=== PATIENT | female | born 1955 | race American Indian/Alaskan Native ===

== ENCOUNTER 2016-10-28 17:07 | Emergency (ER) | payer MEDICAID ==
[2016-10-28 17:20] VITALS: BP 160/88; PULSE 90; RESP 16; TEMP 98.3; O2SAT 96
--- NOTE | 2016-10-28 17:59 | ED PDOC ---
Lower Extremity Pain/Injury Time Seen by Provider: 10/28/16 17:21 Chief Complaint (Nursing): Lower Extremity Problem/Injury Chief Complaint (Provider): Left calf pain History Per: Patient History/Exam Limitations: no limitations Onset/Duration Of Symptoms: Days (1) Current Symptoms Are (Timing): Still Present Additional Complaint(s): Aston Mendoza is a 61 y/o female presenting to the ER on 10/28/2016 with complaints of left calf pain onset yesterday. Patient states when she woke up this morning, she noticed her calf pain worsened and noticed there was some swelling to the area. She was evaluated by Dr. Mendoza, her insecticide mixer, who referred her to the ED for an Ultrasound to rule out DVT. She ntoes the pain feels like a "pulling" sensation. She denies any history of recent travel, smoking, similar symptoms in the past, blood clotting disorders, chest pain or shortness of breath. Past Medical History Reviewed: Historical Data, Nursing Documentation, Vital Signs Vital Signs: Last Vital Signs Temp 98.3 F 10/28/16 17:16 Pulse 90 10/28/16 17:16 Resp 16 10/28/16 17:16 BP 160/88 H 10/28/16 17:16 Pulse Ox 96 10/28/16 17:16 - Medical History PMH: Asthma (LAST ATTACK :2013), Diabetes, HTN, Hypercholesterolemia Denies: Chronic Kidney Disease - Surgical History Surgical History: No Surg Hx - Family History Family History: States: Unknown Family Hx - Social History Current smoker - smoking cessation education provided: No Alcohol: None Drugs: Denies - Home Medications Home Medications: Ambulatory Orders Medication Instructions Recorded Insulin Glargine,Hum.rec.anlog 34 unit SC BID 02/10/15 [Lantus] Aspirin [Ecotrin] 81 mg PO DAILY 05/12/15 Atorvastatin [Lipitor] 80 mg PO DAILY 05/12/15 Losartan/Hydrochlorothiazide 1 tab PO DAILY 05/12/15 [Hyzaar 50-12.5 Tablet] MetFORMIN [glucoPHAGE] 1,000 mg PO BID 05/12/15 Pantoprazole Sodium [Protonix] 40 mg PO DAILY PRN 05/12/15 amLODIPine [Norvasc] 10 mg PO DAILY 05/12/15 Albuterol 0.083% [Albuterol 0.083% 2.5 mg INH RQ4 PRN #0 neb 05/15/15 Inhal Geeta (2.5 mg/3 ml) UD] Moxifloxacin [Avelox] 400 mg PO DAILY #0 tab 05/15/15 Promethazine HCl/Codeine 5 ml PO Q6 PRN #240 syrup 05/15/15 [Prometh-Codein 6.25-10 mg/5 ml] predniSONE [Prednisone] 10 mg PO DAILY #5 tab 05/15/15 - Allergies Allergies/Adverse Reactions: Allergies Allergy/AdvReac Type Severity Reaction Status Date / Time No Known Allergies Allergy Verified 03/08/14 17:18 Review of Systems ROS Statement: Except As Marked, All Systems Reviewed And Found Negative Cardiovascular: Negative for: Chest Pain Respiratory: Negative for: Shortness of Breath Musculoskeletal: Positive for: Leg Pain ((+) calf pain ) Physical Exam - Reviewed Nursing Documentation Reviewed: Yes Vital Signs Reviewed: Yes - Physical Exam Appears: Positive for: Non-toxic, No Acute Distress Head Exam: Positive for: ATRAUMATIC, NORMOCEPHALIC Skin: Positive for: Normal Color. Negative for: Rash Eye Exam: Positive for: Normal appearance Neck: Positive for: Normal Cardiovascular/Chest: Positive for: Regular Rate, Rhythm. Negative for: Murmur Respiratory: Positive for: Normal Breath Sounds. Negative for: Respiratory Distress Extremity: Positive for: Normal ROM, Calf Tenderness (mild), Swelling (mild edema to proximal lateral aspect of left calf ) Neurologic/Psych: Positive for: Alert, Oriented. Negative for: Motor/Sensory Deficits - ECG O2 Sat by Pulse Oximetry: 96 - CT Scan/US L LE Duplex US Other Rad Studies (CT/US): Read By Radiologist Other Rad Interpretation: No DVT noted, Barriga's cyst noted in left popliteal fossa Medical Decision Making Medical Decision Makin:21 Initial Impression- 61 y/o female with left calf pain Initial Plan- * US Duplex LE US results reviewed and discussed with patient. She was advised to f/u with PMD, or Dr. Gimenez, should pain worsen. She was advised to return to the ED for worsening or change in symptoms. Documented by Anam Diaz, acting as a scribe for Gabriela Coffey PA-C All medical record entries made by the Scribe were at my direction and personally dictated by me. I have reviewed the chart and agree that the record accurately reflects my personal performance of the history, physical exam, medical decision making, and the department course for this patient. I have also personally directed, reviewed, and agree with the discharge instructions and disposition. Disposition - Clinical Impression Clinical Impression: Pain of left calf, Bakers cyst - Patient ED Disposition Is Patient to be Admitted: No Counseled Patient/Family Regarding: Studies Performed, Diagnosis, Need For Followup - Disposition Referrals: Pablo Harvey III, MD [Staff Provider] - Disposition: Routine/Home Disposition Time: 19:54 Condition: STABLE Additional Instructions: Apply compression, keep leg elevated, and take antiinflammatories. Avoid strenuous activity. F/u as directed, and return with any worsening or change in symptoms. Instructions: Barriga's Cyst (ED), Leg Pain (ED) Forms: [facility] (Welsh)
--- NOTE | 2016-10-28 19:30 | US ---
EXAM: US Duplex Left Lower Extremity Veins CLINICAL HISTORY: 61 years old, female; Pain; Leg, lower; Left; Additional info: Left le pain/swelling TECHNIQUE: Real-time ultrasound scan of the veins of the left lower extremity with color Doppler flow, spectral waveform analysis and compression. EXAM DATE/TIME: 10/28/2016 5:56 PM COMPARISON: No relevant prior studies available. FINDINGS: Normal-appearing compressibility, flow and augmentation response are seen in the left common femoral, femoral and popliteal veins. Flow is seen in the posterior tibial veins, in the left calf. Mildly complex cystic mass in the left popliteal soft tissues. This has a lobulated shape, and measures 4.2 1.4 x 2.2 cm maximally. It contains several internal soft tissue septations. It has well-defined margins. No evidence of significant associated flow/vascularity on color imaging. This most likely represents a mildly complex Barriga's cyst. IMPRESSION: No evidence of deep venous thrombosis in the left leg. 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 See above for remaining findings.
== END 2016-10-28 20:00 | disposition home or self-care (01) ==
LOC: H.ER 17:07
DX: M79.604 Pain in right leg (principal); E11.9 Type 2 diabetes mellitus without complications; E78.00 Pure hypercholesterolemia, unspecified; I10 Essential (primary) hypertension; J45.909 Unspecified asthma, uncomplicated; Z79.4 Long term (current) use of insulin; Z79.82 Long term (current) use of aspirin

== ENCOUNTER 2017-09-02 19:51 | Observation (INO) | payer MEDICAID ==
--- NOTE | 2017-09-02 20:30 | ED PDOC ---
HPI: Chest Pain Time Seen by Provider: 09/02/17 20:02 Chief Complaint (Nursing): Chest Pain Chief Complaint (Provider): Chest Pain History Per: Patient History/Exam Limitations: no limitations Onset/Duration Of Symptoms: Hrs Current Symptoms Are (Timing): Still Present Alleviating Factors: None Additional Complaint(s): 62 year old female with a past medical history of HTN and diabetes presents to the ED complaining of constant anterior chest pain, onset last night. Patient reports only of taking baby aspirin which she takes everyday. Patient also reports associated symptoms of shortness of breath and passing out sometimes but has never passed out. Patient states chest pain occasionally radiate to left arm. Additionally, patient reports of a high blood pressure today, leading her to take her blood pressure medication twice today. Denies back pain, fever, cough, and leg swelling. PMD: Yannick Hathaway Past Medical History Reviewed: Historical Data, Nursing Documentation, Vital Signs Vital Signs: Last Vital Signs Temp 98.1 F 09/03/17 15:25 Pulse 83 09/03/17 15:25 Resp 20 09/03/17 15:25 BP 143/89 09/03/17 15:25 Pulse Ox 99 09/03/17 15:25 - Medical History PMH: Asthma (LAST ATTACK :2013), Diabetes, HTN, Hypercholesterolemia Denies: Chronic Kidney Disease - Surgical History Surgical History: Hernia Repair - Family History Family History: States: Unknown Family Hx - Home Medications Home Medications: Ambulatory Orders Medication Instructions Recorded Insulin Glargine,Hum.rec.anlog 34 unit SC BID 02/10/15 [Lantus] Aspirin [Ecotrin] 81 mg PO DAILY 05/12/15 Atorvastatin [Lipitor] 80 mg PO DAILY 05/12/15 Losartan/Hydrochlorothiazide 1 tab PO DAILY 05/12/15 [Hyzaar 50-12.5 Tablet] MetFORMIN [glucoPHAGE] 1,000 mg PO BID 05/12/15 Pantoprazole Sodium [Protonix] 40 mg PO DAILY PRN 05/12/15 amLODIPine [Norvasc] 10 mg PO DAILY 05/12/15 Albuterol 0.083% [Albuterol 0.083% 2.5 mg INH RQ4 PRN #0 neb 05/15/15 Inhal Geeta (2.5 mg/3 ml) UD] Moxifloxacin [Avelox] 400 mg PO DAILY #0 tab 05/15/15 Promethazine HCl/Codeine 5 ml PO Q6 PRN #240 syrup 05/15/15 [Prometh-Codein 6.25-10 mg/5 ml] predniSONE [predniSONE Tab] 10 mg PO DAILY #5 tab 05/15/15 Gabapentin [Neurontin] 300 mg PO TID 09/03/17 Insulin Detemir [Levemir] 42 units SC BID #0 vial 09/03/17 Irbesartan 150 mg PO DAILY 09/03/17 Omeprazole 40 mg PO DAILY 09/03/17 hydroCHLOROthiazide [Hydrodiuril] 25 mg PO DAILY 09/03/17 - Allergies Allergies/Adverse Reactions: Allergies Allergy/AdvReac Type Severity Reaction Status Date / Time No Known Allergies Allergy Verified 03/08/14 17:18 MORRO Risk Score for UA/NSTEMI - MORRO Risk Score Age > 64: NO 3 or more CAD Risk Factors: YES Known CAD (Stenosis greater than 50%): NO Aspirin use in past 7 days: YES Severe Angina: NO EKG ST changes greater than 0.5mm: NO MORRO Score: 2 Risk %: 8% Wells Criteria for PE - Wells Criteria for Pulmonary Embolism Clinical Signs and Symptoms of DVT: No P.E is #1 Diagnosis, or Equally Likely: No Heart Rate >100: No Immobilization at least 3 days;Surgery previous 4 weeks: No Previous, objectively diagnosed PE or DVT: No Hemoptysis: No Malignancy w/treatment within 6 months, or palliative: No Total Score: 0 Review of Systems ROS Statement: Except As Marked, All Systems Reviewed And Found Negative Constitutional: Negative for: Fever Cardiovascular: Positive for: Chest Pain (anterior constant/continuous ) Respiratory: Positive for: Shortness of Breath (occasional). Negative for: Cough Musculoskeletal: Negative for: Back Pain, Leg Pain Physical Exam - Reviewed Nursing Documentation Reviewed: Yes Vital Signs Reviewed: Yes - Physical Exam Appears: Positive for: Non-toxic, No Acute Distress (comfortable) Head Exam: Positive for: ATRAUMATIC, NORMOCEPHALIC Skin: Positive for: Normal Color, Warm, Dry Eye Exam: Positive for: Normal appearance, EOMI, PERRL ENT: Positive for: Normal ENT Inspection Neck: Positive for: Normal, Painless ROM, Supple Cardiovascular/Chest: Positive for: Regular Rate, Rhythm. Negative for: Chest Non Tender (chest wall tenderness to the anterior middle of chest), Murmur Respiratory: Positive for: Normal Breath Sounds. Negative for: Respiratory Distress Gastrointestinal/Abdominal: Positive for: Normal Exam, Soft. Negative for: Tenderness Back: Positive for: Normal Inspection. Negative for: L CVA Tenderness, R CVA Tenderness, Vertebral Tenderness Extremity: Positive for: Normal ROM. Negative for: Pedal Edema, Deformity Neurologic/Psych: Positive for: Alert, Oriented (x3). Negative for: Motor/ Sensory Deficits - Laboratory Results Result Diagrams: 09/03/17 07:15 09/03/17 06:19 - ECG ECG Rhythm: Positive for: Normal QRS, Sinus Rhythm Rate: 95 O2 Sat by Pulse Oximetry: 96 (RA) Pulse Ox Interpretation: Normal Medical Decision Making Medical Decision Making: Time: 2022 Impression: Chest pain Differentials include but not limited to ACS, Pulmonary Embolism, Musculoskeletal pain, CHF Plan: -- IV Insertion -- Hand Clipper -- Aspirin 325 mg PO -- CXR One View -- D Dimer [COAG] -- CBC with differentials -- Troponin I -- BMP -- B-Type Natriuretic -- EKG Scribe Attestation: Documented by Ivana Franco, acting as a scribe for Dr. Eloise Jones MD. Provider Scribe Attestation: All medical record entries made by the Scribe were at my direction and personally dictated by me. I have reviewed the chart and agree that the record accurately reflects my personal performance of the history, physical exam, medical decision making, and the department course for this patient. I have also personally directed, reviewed, and agree with the discharge instructions and disposition. Disposition - Clinical Impression Clinical Impression: Chest pain - Patient ED Disposition Is Patient to be Admitted: Yes Discussed With : Clint Coronel Doctor Will See Patient In The: Hospital Counseled Patient/Family Regarding: Studies Performed, Diagnosis - Disposition Disposition Time: 23:00 Condition: FAIR - Pt Status Changed To: Hospital Disposition Of: Observation - POA Present On Arrival: None Core Measure Indicators: Chest Pain
[2017-09-02 21:23] LABS: BASO # 0.1 K/uL (0.0-0.2); BASO % 0.7 % (0.0-2.0); EOS # 0.1 K/uL (0.0-0.7); HEMOGLOBIN 11.2 g/dL (12.0-16.0); LYMPH # 2.5 K/uL (1.0-4.3); LYMPH % 31.1 % (20.0-40.0); MEAN CELL VOLUME 81.4 fl (81.0-99.0); MEAN CORPUSCULAR HEMOGLOBIN 26.2 pg (27.0-31.0); MEAN CORPUSCULAR HGB CONC 32.2 g/dL (33.0-37.0); MEAN PLATELET VOLUME 9.9 fl (7.2-11.7); MONO # 0.6 K/uL (0.0-0.8); MONO % 7.8 % (0.0-10.0); NEUT # 4.7 K/uL (1.8-7.0); NEUT % 59.4 % (50.0-75.0); NRBC % 0.1 % (0.0-0.0); RBC 4.25 Mil/uL (3.80-5.20); RED CELL DISTRIBUTION WIDTH 15.3 % (11.5-14.5)
[2017-09-02 21:32] LABS: BLOOD UREA NITROGEN 17 mg/dl (7-17); CALCIUM 8.9 mg/dL (8.4-10.2); GFR AFRICAN-AMERICAN > 60; GFR NON-AFRICAN AMERICAN > 60
[2017-09-02 21:50] LABS: B-TYPE NATRIURETIC PEPTIDE 37.8 pg/ml (0-900)
[2017-09-02] MEDS ORDERED: Pantoprazole 40 mg EC Tab PO PRN (23:10)
[2017-09-02] MEDS ORDERED: Albuterol 0.083% Inhal Sol (2.5 mg/3 mL) UD INH PRN (23:10)
[2017-09-03] MEDS ORDERED: Insulin Regular 100 units/ml ONE (02:56)
[2017-09-03] MEDS: Insulin Lispro (humaLOG) 100 Units/ml Inj SC SCH ×2 (03:37→12:06)
[2017-09-03 06:45] VITALS: RESP 20
[2017-09-03 07:43] LABS: ALBUMIN 3.6 g/dL (3.5-5.0); ALT/SGPT 22 U/L (9-52); AST/SGOT 24 U/L (14-36); BLOOD UREA NITROGEN 17 mg/dl (7-17); GFR AFRICAN-AMERICAN > 60; GFR NON-AFRICAN AMERICAN > 60
--- NOTE | 2017-09-03 07:53 | CP.PCM.HP ---
History of Present Illness - History of Present Illness History of Present Illness: Pt admitted for chest pain, elevated blood pressure/uncontrolled hypertension and diabetes uncontrolled. no c/o chest pain offered at this time no fever chills nausea vomiting or diarrhea. patient has been having chest pain on and off and has seen [facility] for the same complaint. All bloodwork from ER and imaging noted. cardio consult and echo are pending. All glucose results noted overnight patient has seen Endochronologist recently trop negative x 2 Present on Admission - Present on Admission Any Indicators Present on Admission: Yes History of Uncontrolled Diabetes: Yes Review of Systems - Cardiovascular Cardiovascular: As Per HPI, Chest Pain Past Patient History - Infectious Disease Hx of Infectious Diseases: None - Past Medical History & Family History Past Medical History?: Yes - Past Social History Smoking Status: Former Smoker - CARDIAC Hx Hypercholesterolemia: Yes Hx Hypertension: Yes - PULMONARY Hx Asthma: Yes (LAST ATTACK :2013) - NEUROLOGICAL Hx Neurological Disorder: No - HEENT Hx HEENT Problems: No - RENAL Hx Chronic Kidney Disease: No - ENDOCRINE/METABOLIC Hx Endocrine Disorders: Yes Hx Diabetes Mellitus Type 2: Yes - HEMATOLOGICAL/ONCOLOGICAL Hx Blood Disorders: No Hx AIDS: No - INTEGUMENTARY Hx Dermatological Problems: No - MUSCULOSKELETAL/RHEUMATOLOGICAL Hx Musculoskeletal Disorders: No Hx Falls: No - GASTROINTESTINAL Hx Gastrointestinal Disorders: No - GENITOURINARY/GYNECOLOGICAL Hx Genitourinary Disorders: No - PSYCHIATRIC Hx Psychophysiologic Disorder: No Hx Emotional Abuse: No Hx Physical Abuse: No Hx Substance Use: No - SURGICAL HISTORY Hx Surgeries: Yes Hx Herniorrhaphy: Yes Other/Comment: ABDOMINAL HERNIA REPAIR. eye sx - ANESTHESIA Hx Anesthesia: Yes Hx Anesthesia Reactions: No Meds Allergies/Adverse Reactions: Allergies Allergy/AdvReac Type Severity Reaction Status Date / Time No Known Allergies Allergy Verified 03/08/14 17:18 Physical Exam - Constitutional Appears: Well, Non-toxic, No Acute Distress - Head Exam Head Exam: ATRAUMATIC, NORMAL INSPECTION, NORMOCEPHALIC - Eye Exam Eye Exam: EOMI, Normal appearance, PERRL Pupil Exam: NORMAL ACCOMODATION, PERRL - ENT Exam ENT Exam: Mucous Membranes Moist, Normal Exam - Neck Exam Neck exam: Positive for: Normal Inspection - Respiratory Exam Respiratory Exam: Clear to Auscultation Bilateral, NORMAL BREATHING PATTERN - Cardiovascular Exam Cardiovascular Exam: REGULAR RHYTHM, RRR, +S1, +S2 - GI/Abdominal Exam GI & Abdominal Exam: Normal Bowel Sounds, Soft. absent: Tenderness - Exam External exam: NORMAL EXTERNAL EXAM Bimanual exam: NORMAL BIMANUAL EXAM - Extremities Exam Extremities exam: Positive for: full ROM, normal capillary refill, normal inspection, pedal pulses present - Back Exam Back exam: NORMAL INSPECTION - Neurological Exam Neurological exam: Alert, CN II-XII Intact, Normal Gait, Oriented x3, Reflexes Normal - Psychiatric Exam Psychiatric exam: Normal Affect, Normal Mood - Skin Skin Exam: Dry, Intact, Normal Color, Warm Results - Vital Signs Recent Vital Signs: Last Vital Signs Temp 98.7 F 09/03/17 06:42 Pulse 22 L 09/03/17 06:42 Resp 20 09/03/17 06:42 BP 139/95 H 09/03/17 06:42 Pulse Ox 97 09/03/17 06:42 - Labs Result Diagrams: 09/03/17 07:15 09/03/17 06:19 Labs: Laboratory Results - last 24 hr 09/02/17 09/02/17 09/02/17 21:17 21:17 23:09 WBC 8.0 RBC 4.25 Hgb 11.2 L Hct 34.6 MCV 81.4 MCH 26.2 L MCHC 32.2 L RDW 15.3 H Plt Count 192 MPV 9.9 Neut % (Auto) 59.4 Lymph % (Auto) 31.1 [place] % (Auto) 7.8 Eos % (Auto) 1.0 Baso % (Auto) 0.7 Neut # (Auto) 4.7 Lymph # (Auto) 2.5 [place] # (Auto) 0.6 Eos # (Auto) 0.1 Baso # (Auto) 0.1 D-Dimer, Quantitative 92 Sodium 141 Potassium 3.5 L Chloride 101 Carbon Dioxide 31 H Anion Gap 13 BUN 17 Creatinine 0.7 Est GFR ( Amer) > 60 Est GFR (Non-Af Amer) > 60 POC Glucose (mg/dL) Random Glucose 259 H Calcium 8.9 Total Bilirubin AST ALT Alkaline Phosphatase Troponin I < 0.0120 NT-Pro-B Natriuret Pep 37.8 Total Protein Albumin Globulin Albumin/Globulin Ratio 09/03/17 09/03/17 02:23 06:19 WBC RBC Hgb Hct MCV MCH MCHC RDW Plt Count MPV Neut % (Auto) Lymph % (Auto) [place] % (Auto) Eos % (Auto) Baso % (Auto) Neut # (Auto) Lymph # (Auto) [place] # (Auto) Eos # (Auto) Baso # (Auto) D-Dimer, Quantitative Sodium 144 Potassium 3.4 L Chloride 104 Carbon Dioxide 32 H Anion Gap 11 BUN 17 Creatinine 0.7 Est GFR ( Amer) > 60 Est GFR (Non-Af Amer) > 60 POC Glucose (mg/dL) 182 H Random Glucose 138 H Calcium 9.0 Total Bilirubin 0.3 AST 24 ALT 22 Alkaline Phosphatase 66 Troponin I NT-Pro-B Natriuret Pep Total Protein 7.0 Albumin 3.6 Globulin 3.4 Albumin/Globulin Ratio 1.0 Assessment & Plan (1) DVT prophylaxis Assessment and Plan: scd and ae hose ambulation lovenox if admitted over 24h Status: Acute (2) Diabetes type 2, uncontrolled Assessment and Plan: humalog ss, fsbg, diet control home meds dose of levemir incr Status: Acute (3) Acute chest pain Assessment and Plan: trop x 2 negative, 3rd pending cardio asa, ntg prn echo Status: Acute (4) Hypertension Assessment and Plan: cont home meds Status: Acute Decision To Admit - Pt Status Changed To: Hospital Disposition Of: Observation - . Bed Request Type: Telemetry Admitting Physician: Maritza Barriga
[2017-09-03] MEDS ORDERED: Potassium Chloride 20 mEq ER Tab PO ONE (08:21)
[2017-09-03 08:35] LABS: BASO % 0.6 % (0.0-2.0); EOS # 0.1 K/uL (0.0-0.7); EOS % 1.7 % (0.0-4.0); HEMOGLOBIN 11.5 g/dL (12.0-16.0); LYMPH # 2.7 K/uL (1.0-4.3); LYMPH % 39.4 % (20.0-40.0); MEAN CELL VOLUME 81.7 fl (81.0-99.0); MEAN CORPUSCULAR HEMOGLOBIN 26.7 pg (27.0-31.0); MEAN CORPUSCULAR HGB CONC 32.7 g/dL (33.0-37.0); MONO # 0.8 K/uL (0.0-0.8); MONO % 11.1 % (0.0-10.0); NEUT # 3.3 K/uL (1.8-7.0); NEUT % 47.2 % (50.0-75.0); NRBC % 0.1 % (0.0-0.0); RBC 4.32 Mil/uL (3.80-5.20); RED CELL DISTRIBUTION WIDTH 15.5 % (11.5-14.5)
[2017-09-03] MEDS ORDERED: Insulin Detemir 100 Units/ml Inj SC SCH (09:00)
[2017-09-03] MEDS ORDERED: INSULIN GLARGINE HUM REC ANLOG 42 UNIT SC SCH (09:00)
--- NOTE | 2017-09-03 09:43 | RAD ---
PROCEDURE: CHEST RADIOGRAPH, 1 VIEW HISTORY: chest pain COMPARISON: None available. FINDINGS: LUNGS: Trace fibrosis again seen left base laterally. No infiltrates bilaterally. No definite acute pulmonary disease. PLEURA: No pneumothorax or pleural fluid seen. CARDIOVASCULAR: Normal. OSSEOUS STRUCTURES: No significant abnormalities. VISUALIZED UPPER ABDOMEN: Normal. OTHER FINDINGS: None. IMPRESSION: No acute cardiopulmonary disease in the interval. Stable minimal fibrosis left base again evident.
[2017-09-03 12:00] VITALS: TEMP 98.1
--- NOTE | 2017-09-03 12:44 | CARD ---
APPROVED REPORT EXAM: Two-dimensional and M-mode echocardiogram with Doppler and color Doppler. Other Information Quality : FairRhythm : Technically limited study due to body habitus. INDICATION Chest Pain 2D DIMENSIONS IVSd1.43 (0.7-1.1cm)LVDd4.13 (3.9-5.9cm) PWd1.19 (0.7-1.1cm)LVDs3.08 (2.5-4.0cm) FS (%) 25.4 %LVEF (%)55.0 (>50%) M-Mode DIMENSIONS Left Atrium (MM)4.16 (2.5-4.0cm)IVSd1.42 (0.7-1.1cm) Aortic Root2.38 (2.2-3.7cm)LVDd4.20 (4.0-5.6cm) Aortic Cusp Exc.2.17 (1.5-2.0cm)PWd1.49 (0.7-1.1cm) FS (%) 34 %LVDs2.77 (2.0-3.8cm) Mitral Valve MV E Imfkjnrs72.3cm/sMV DECEL [id number] A Lfqiceau47.7cm/s MV VEF21pmX/A ratio0.6MVA (PHT)2.51cm2 TDI Lateral E' Peak V6.52cm/sMedial E' Peak V6.76cm/sE/Lateral E'7.9 E/Medial E'7.6 Pulmonary Valve PV Peak Evrzhoaw189.1cm/s Tricuspid Valve TR Peak Pwlmqwao841tg/sTR Peak Gr.22mmHg LEFT VENTRICLE The left ventricle is normal size. There is mild concentric left ventricular hypertrophy. The left ventricular function is normal. The left ventricular ejection fraction is within the normal range. There is normal LV segmental wall motion. Transmitral Doppler flow pattern is Grade I-abnormal relaxation pattern. RIGHT VENTRICLE The right ventricle is normal size. There is normal right ventricular wall thickness. The right ventricular systolic function is normal. ATRIA The left atrium is borderline dilated. The right atrium size is normal. AORTIC VALVE The aortic valve is not well visualized. No aortic regurgitation is present. There is no aortic valvular stenosis. MITRAL VALVE The mitral valve is normal in structure. There is no mitral valve stenosis. Mitral regurgitation is trace. TRICUSPID VALVE The tricuspid valve is normal in structure. There is trace tricuspid regurgitation. PULMONIC VALVE The pulmonary valve is normal in structure. There is no pulmonic valvular regurgitation. GREAT VESSELS The aortic root is normal in size. The IVC is normal in size and collapses >50% with inspiration. PERICARDIAL EFFUSION The pericardium appears normal. <Conclusion> The left ventricle is normal size. There is mild concentric left ventricular hypertrophy. The left ventricular function is normal. The left ventricular ejection fraction is within the normal range. There is normal LV segmental wall motion. Transmitral Doppler flow pattern is Grade I-abnormal relaxation pattern.
--- NOTE | 2017-09-03 15:25 | CARD ---
APPROVED REPORT EKG Measurement Heart [id number] CT [id number] <Conclusion> Normal sinus rhythm Normal ECG
[2017-09-03 15:37] VITALS: BP 143/89
--- NOTE | 2017-09-03 15:37 | CP.PCM.CON ---
History of Present Illness - History of Present Illness History of Present Illness: I was asked to see patient by Dr Coronel and Dr Barriga. Patient is a 62 year old female with PMH HTN, DM who presents with chest pain. She describes a substenal chest pressure which is present with exertion. There is associated dyspnea. Symptoms improve with rest. The patient has had negative cardiac enzymes. Review of Systems - Constitutional Constitutional: absent: As Per HPI, Anorexia, Chills, Daytime Sleepiness, Excessive Sweating, Fatigue, Fever, Frequent Falls, Headache, Increased Appetite , Lethargy, Malaise, Night Sweats, Snoring, Sleep Apnea, Weight Gain, Weight Loss, Weakness, Other - EENT Eyes: absent: As Per HPI, Blind Spots, Blurred Vision, Change in Vision, Decreased Night Vision, Diplopia, Discharge, Dry Eye, Exophthalmos, Floaters, Irritation, Itchy Eyes, Loss of Peripheral Vision, Pain, Photophobia, Requires Corrective Lenses, Sees Flashes, Spots in Vision, Tunnel Vision, Other Visual Disturbances, Loss of Vision, Other Ears: absent: As Per HPI, Decreased Hearing, Ear Discharge, Ear Pain, Tinnitus, Abnormal Hearing, Disequilibrium, Dizziness, Other Nose/Mouth/Throat: absent: As Per HPI, Epistaxis, Nasal Congestion, Nasal Discharge, Nasal Obstruction, Nasal Trauma, Nose Pain, Post Nasal Drip, Sinus Pain, Sinus Pressure, Bleeding Gums, Change in Voice, Dental Pain, Dry Mouth, Dysphagia, Halitosis, Hoarsness, Lip Swelling, Mouth Lesions, Mouth Pain, Odynophagia, Sore Throat, Throat Swelling, Tongue Swelling, Facial Pain, Neck Pain, Neck Mass, Other - Breasts Breasts: absent: As Per HPI, Change in Shape, Mass, Pain, Nipple Discharge, Nipple Inversion, Skin Changes, Swelling, Other - Cardiovascular Cardiovascular: Chest Pain at Rest, Dyspnea - Respiratory Respiratory: Dyspnea - Gastrointestinal Gastrointestinal: absent: As Per HPI, Abdominal Pain, Belching, Bloating, Change in Bowel Habits, Change in Stool Character, Coffee Ground Emesis, Constipation, Cramping, Diarrhea, Dyspepsia, Dysphagia, Early Satiety, Excessive Flatus, Fecal Incontinence, Heartburn, Hematemesis, Hematochezia, Loose Stools, Melena, Nausea, Odynophagia, Temesmus, Vomiting, Other - Genitourinary Genitourinary: absent: As Per HPI, Change in Urinary Stream, Difficulty Urinating, Dysuria, Flank Pain, Hematuria, Pyuria, Nocturia, Urinary Incontinence, Urinary Frequency, Urinary Hesitance, Urinary Urgency, Voiding Freq/Small Amts, Freq UTI, Hx Renal/Bladder Calculi, Hx /Renal Surgery, Bladder Distension, Other - Musculoskeletal Musculoskeletal: absent: As Per HPI, Abnormal Gait, Arthralgias, Atrophy, Back Pain, Deformity, Joint Swelling, Limited Range of Motion, Loss of Height, Muscle Cramps, Muscle Weakness, Myalgias, Neck Pain, Numbness, Radiating Pain into Limb, Stiffness, Tingling, Other - Integumentary Integumentary: absent: As Per HPI, Acne, Alopecia, Bleeding Lesions, Change in Hair, Change in Nails, Change in Pigmentation, Changing Lesions, Dry Skin, Erythema, Furuncle, Hirsutism, Lesions, New Lesions, Non-Healing Lesions, Photosensitivity, Pruritus, Rash, Skin Pain, Skin Ulcer, Sores, Striae, Swelling , Unusual Bruising, Wounds, Jaundice, Other - Neurological Neurological: absent: As Per HPI, Abnormal Gait, Abnormal Hearing, Abnormal Movements, Abnormal Speech, Behavioral Changes, Burning Sensations, Confusion, Convulsions, Disequilibrium, Dizziness, Numbness, Focal Weakness, Frequent Falls , Headaches, Lack of Coordination, Loss of Vision, Memory Loss, Paresthesias, Radicular Pain, Restless Legs, Sensory Deficit, Syncope, Tingling, Tremor, Vertigo, Weakness, Other Visual Disturbances, Other - Psychiatric Psychiatric: absent: As Per HPI, Abnormal Sleep Pattern, Anhedonia, Anxiety, Auditory Hallucinations, Behavioral Changes, Change in Appetite, Change in Libido, Confusion, Depression, Difficulty Concentrating, Hallucinations, Homicidal Ideation, Hopelessness, Irritability, Memory Loss, Mood Swings, Panic Attacks, Paranoia, Suicidal Ideation, Visual Hallucinations, Tactile Hallucinations, Other - Endocrine Endocrine: absent: As Per HPI, Change in Body Appearance, Change in Libido, Cold Intolorance, Deepening of Voice, Excessive Sweating, Fatigue, Flushing, Heat Intolorance, Increase in Ring/Shoe/Hat Size, Palpitations, Polydipsia, Polyphagia, Polyuria, Other - Hematologic/Lymphatic Hematologic: absent: As Per HPI, Easy Bleeding, Easy Bruising, Lymphadenopathy, Other Past Patient History - Infectious Disease Hx of Infectious Diseases: None - Past Medical History & Family History Past Medical History?: Yes - Past Social History Smoking Status: Former Smoker - CARDIAC Hx Hypercholesterolemia: Yes Hx Hypertension: Yes - PULMONARY Hx Asthma: Yes (LAST ATTACK :2013) - NEUROLOGICAL Hx Neurological Disorder: No - HEENT Hx HEENT Problems: No - RENAL Hx Chronic Kidney Disease: No - ENDOCRINE/METABOLIC Hx Endocrine Disorders: Yes Hx Diabetes Mellitus Type 2: Yes - HEMATOLOGICAL/ONCOLOGICAL Hx Blood Disorders: No Hx AIDS: No - INTEGUMENTARY Hx Dermatological Problems: No - MUSCULOSKELETAL/RHEUMATOLOGICAL Hx Musculoskeletal Disorders: No Hx Falls: No - GASTROINTESTINAL Hx Gastrointestinal Disorders: No - GENITOURINARY/GYNECOLOGICAL Hx Genitourinary Disorders: No - PSYCHIATRIC Hx Psychophysiologic Disorder: No Hx Emotional Abuse: No Hx Physical Abuse: No Hx Substance Use: No - SURGICAL HISTORY Hx Surgeries: Yes Hx Herniorrhaphy: Yes Other/Comment: ABDOMINAL HERNIA REPAIR. eye sx - ANESTHESIA Hx Anesthesia: Yes Hx Anesthesia Reactions: No Meds Home Medications: Home Medication List Medication Instructions Recorded Confirmed Type Insulin Detemir [Levemir] 42 units SC BID #0 vial 09/03/17 Rx Allergies/Adverse Reactions: Allergies Allergy/AdvReac Type Severity Reaction Status Date / Time No Known Allergies Allergy Verified 03/08/14 17:18 - Medications Medications: Current Medications Albuterol Sulfate (Albuterol 0.083% Inhal Geeta (2.5 Mg/3 Ml) Ud) 2.5 mg INH RQ4 PRN PRN Reason: Shortness of Breath Amlodipine Besylate (Norvasc) 10 mg PO DAILY [facility] Last Admin: 09/03/17 09:59 Dose: Not Given Aspirin (Ecotrin) 81 mg PO DAILY [facility] Last Admin: 09/03/17 09:38 Dose: 81 mg Atorvastatin Calcium (Lipitor) 80 mg PO HS [facility] Last Admin: 09/03/17 00:12 Dose: Not Given Carvedilol (Coreg) 6.25 mg PO Q12 [facility] Last Admin: 09/03/17 00:00 Dose: 6.25 mg Gabapentin (Neurontin) 300 mg PO TID [facility] Last Admin: 09/03/17 09:42 Dose: Not Given Hydrochlorothiazide (Hydrodiuril) 25 mg PO DAILY [facility] Last Admin: 09/03/17 09:10 Dose: Not Given Insulin Detemir (Levemir) 42 units SC BID [facility] Last Admin: 09/03/17 09:54 Dose: Not Given Insulin Human Lispro (Humalog) 0 units SC ACHS [facility] PRN Reason: Protocol Last Admin: 09/03/17 12:06 Dose: 2 units Losartan Potassium (Cozaar) 50 mg PO DAILY [facility] Last Admin: 09/03/17 09:43 Dose: 50 mg Metformin HCl (Glucophage) 1,000 mg PO BID [facility] Last Admin: 09/03/17 09:38 Dose: 1,000 mg Nitroglycerin (Nitrostat Sl Tab) 0.4 mg SL Q5M PRN PRN Reason: cp Pantoprazole Sodium (Protonix Ec Tab) 40 mg PO DAILY PRN PRN Reason: Heartburn Last Admin: 09/03/17 09:39 Dose: 40 mg Physical Exam - Constitutional Appears: Non-toxic - Head Exam Head Exam: NORMAL INSPECTION - Eye Exam Eye Exam: Normal appearance - ENT Exam ENT Exam: Mucous Membranes Moist - Neck Exam Neck exam: Positive for: Full Rom - Respiratory Exam Respiratory Exam: NORMAL BREATHING PATTERN - Cardiovascular Exam Cardiovascular Exam: REGULAR RHYTHM - GI/Abdominal Exam GI & Abdominal Exam: Normal Bowel Sounds - Rectal Exam Rectal Exam: Deferred - Extremities Exam Extremities exam: Positive for: normal inspection. Negative for: pedal edema - Back Exam Back exam: NORMAL INSPECTION - Neurological Exam Neurological exam: Alert, Oriented x3 - Psychiatric Exam Psychiatric exam: Normal Affect - Skin Skin Exam: Normal Color Results - Vital Signs Recent Vital Signs: Last Vital Signs Temp 98.1 F 09/03/17 11:59 Pulse 84 09/03/17 11:59 Resp 20 09/03/17 11:59 BP 151/90 H 09/03/17 11:59 Pulse Ox 95 09/03/17 11:59 - Labs Result Diagrams: 09/03/17 07:15 09/03/17 06:19 Labs: Laboratory Results - last 24 hr 09/02/17 09/02/17 09/02/17 21:17 21:17 23:09 WBC 8.0 RBC 4.25 Hgb 11.2 L Hct 34.6 MCV 81.4 MCH 26.2 L MCHC 32.2 L RDW 15.3 H Plt Count 192 MPV 9.9 Neut % (Auto) 59.4 Lymph % (Auto) 31.1 [place] % (Auto) 7.8 Eos % (Auto) 1.0 Baso % (Auto) 0.7 Neut # (Auto) 4.7 Lymph # (Auto) 2.5 [place] # (Auto) 0.6 Eos # (Auto) 0.1 Baso # (Auto) 0.1 D-Dimer, Quantitative 92 Sodium 141 Potassium 3.5 L Chloride 101 Carbon Dioxide 31 H Anion Gap 13 BUN 17 Creatinine 0.7 Est GFR ( Amer) > 60 Est GFR (Non-Af Amer) > 60 POC Glucose (mg/dL) Random Glucose 259 H Calcium 8.9 Total Bilirubin AST ALT Alkaline Phosphatase Troponin I < 0.0120 NT-Pro-B Natriuret Pep 37.8 Total Protein Albumin Globulin Albumin/Globulin Ratio 09/03/17 09/03/17 09/03/17 02:23 06:19 07:15 WBC 7.0 RBC 4.32 Hgb 11.5 L Hct 35.3 MCV 81.7 MCH 26.7 L MCHC 32.7 L RDW 15.5 H Plt Count 183 MPV 10.0 Neut % (Auto) 47.2 L Lymph % (Auto) 39.4 [place] % (Auto) 11.1 H Eos % (Auto) 1.7 Baso % (Auto) 0.6 Neut # (Auto) 3.3 Lymph # (Auto) 2.7 [place] # (Auto) 0.8 Eos # (Auto) 0.1 Baso # (Auto) 0.0 D-Dimer, Quantitative Sodium 144 Potassium 3.4 L Chloride 104 Carbon Dioxide 32 H Anion Gap 11 BUN 17 Creatinine 0.7 Est GFR ( Amer) > 60 Est GFR (Non-Af Amer) > 60 POC Glucose (mg/dL) 182 H Random Glucose 138 H Calcium 9.0 Total Bilirubin 0.3 AST 24 ALT 22 Alkaline Phosphatase 66 Troponin I < 0.0120 NT-Pro-B Natriuret Pep Total Protein 7.0 Albumin 3.6 Globulin 3.4 Albumin/Globulin Ratio 1.0 09/03/17 09/03/17 09/03/17 09:50 11:53 13:00 WBC RBC Hgb Hct MCV MCH MCHC RDW Plt Count MPV Neut % (Auto) Lymph % (Auto) [place] % (Auto) Eos % (Auto) Baso % (Auto) Neut # (Auto) Lymph # (Auto) [place] # (Auto) Eos # (Auto) Baso # (Auto) D-Dimer, Quantitative Sodium Potassium Chloride Carbon Dioxide Anion Gap BUN Creatinine Est GFR ( Amer) Est GFR (Non-Af Amer) POC Glucose (mg/dL) 164 H 192 H Random Glucose Calcium Total Bilirubin AST ALT Alkaline Phosphatase Troponin I < 0.0120 NT-Pro-B Natriuret Pep Total Protein Albumin Globulin Albumin/Globulin Ratio 09/03/17 15:28 WBC RBC Hgb Hct MCV MCH MCHC RDW Plt Count MPV Neut % (Auto) Lymph % (Auto) [place] % (Auto) Eos % (Auto) Baso % (Auto) Neut # (Auto) Lymph # (Auto) [place] # (Auto) Eos # (Auto) Baso # (Auto) D-Dimer, Quantitative Sodium Potassium Chloride Carbon Dioxide Anion Gap BUN Creatinine Est GFR ( Amer) Est GFR (Non-Af Amer) POC Glucose (mg/dL) 134 H Random Glucose Calcium Total Bilirubin AST ALT Alkaline Phosphatase Troponin I NT-Pro-B Natriuret Pep Total Protein Albumin Globulin Albumin/Globulin Ratio - EKG Data EKG Interpreted by: Myself EKG shows normal: Sinus rhythm Assessment & Plan (1) Chest pain Assessment and Plan: patient has ruled out for myocardial infarction echo reveals normal left ventricular function. Pateint is stable for discharge. I recommend outpatient stress test. CArdiac risk factors discussed in detail Status: Acute (2) Diabetes Status: Acute (3) Hyperlipidemia Status: Acute
[2017-09-03 19:41] VITALS: PULSE 95; O2SAT 96
--- NOTE | 2017-09-03 20:57 | CP.PCM.DIS ---
Provider - Provider Date of Admission: 09/02/17 23:04 Attending physician: Maritza Barriga MD Time Spent in preparation of Discharge (in minutes): 15 Diagnosis - Discharge Diagnosis (1) DVT prophylaxis Status: Acute (2) Diabetes type 2, uncontrolled Status: Acute (3) Acute chest pain Status: Acute (4) Hypertension Status: Acute Hospital Course - Lab Results Lab Results: Most Recent Lab Values WBC 7.0 K/uL (4.8-10.8) 09/03/17 07:15 RBC 4.32 Mil/uL (3.80-5.20) 09/03/17 07:15 Hgb 11.5 g/dL (12.0-16.0) L 09/03/17 07:15 Hct 35.3 % (34.0-47.0) 09/03/17 07:15 MCV 81.7 fl (81.0-99.0) 09/03/17 07:15 MCH 26.7 pg (27.0-31.0) L 09/03/17 07:15 MCHC 32.7 g/dL (33.0-37.0) L 09/03/17 07:15 RDW 15.5 % (11.5-14.5) H 09/03/17 07:15 Plt Count 183 K/uL (130-400) 09/03/17 07:15 MPV 10.0 fl (7.2-11.7) 09/03/17 07:15 Neut % (Auto) 47.2 % (50.0-75.0) L 09/03/17 07:15 Lymph % (Auto) 39.4 % (20.0-40.0) 09/03/17 07:15 [place] % (Auto) 11.1 % (0.0-10.0) H 09/03/17 07:15 Eos % (Auto) 1.7 % (0.0-4.0) 09/03/17 07:15 Baso % (Auto) 0.6 % (0.0-2.0) 09/03/17 07:15 Neut # (Auto) 3.3 K/uL (1.8-7.0) 09/03/17 07:15 Lymph # (Auto) 2.7 K/uL (1.0-4.3) 09/03/17 07:15 [place] # (Auto) 0.8 K/uL (0.0-0.8) 09/03/17 07:15 Eos # (Auto) 0.1 K/uL (0.0-0.7) 09/03/17 07:15 Baso # (Auto) 0.0 K/uL (0.0-0.2) 09/03/17 07:15 D-Dimer, Quantitative 92 ng/mlDDU (0-230) 09/02/17 23:09 Sodium 144 mmol/l (132-148) 09/03/17 06:19 Potassium 3.4 MMOL/L (3.6-5.0) L 09/03/17 06:19 Chloride 104 mmol/L (98-107) 09/03/17 06:19 Carbon Dioxide 32 mmol/L (22-30) H 09/03/17 06:19 Anion Gap 11 (10-20) 09/03/17 06:19 BUN 17 mg/dl (7-17) 09/03/17 06:19 Creatinine 0.7 mg/dl (0.7-1.2) 09/03/17 06:19 Est GFR ( Amer) > 60 09/03/17 06:19 Est GFR (Non-Af Amer) > 60 09/03/17 06:19 POC Glucose (mg/dL) 134 mg/dL (65-110) H 09/03/17 15:28 Random Glucose 138 mg/dL (65-105) H 09/03/17 06:19 Calcium 9.0 mg/dL (8.4-10.2) 09/03/17 06:19 Total Bilirubin 0.3 mg/dl (0.2-1.3) 09/03/17 06:19 AST 24 U/L (14-36) 09/03/17 06:19 ALT 22 U/L (9-52) 09/03/17 06:19 Alkaline Phosphatase 66 U/L (38-126) 09/03/17 06:19 Troponin I < 0.0120 ng/mL (0.00-0.120) 09/03/17 13:00 NT-Pro-B Natriuret Pep 37.8 pg/ml (0-900) 09/02/17 21:17 Total Protein 7.0 G/DL (6.3-8.2) 09/03/17 06:19 Albumin 3.6 g/dL (3.5-5.0) 09/03/17 06:19 Globulin 3.4 gm/dL (2.2-3.9) 09/03/17 06:19 Albumin/Globulin Ratio 1.0 (1.0-2.1) 09/03/17 06:19 - Hospital Course Hospital Course: trops, echo, cardio Discharge Exam - Head Exam Head Exam: ATRAUMATIC, NORMOCEPHALIC Discharge Plan - Follow Up Plan Condition: FAIR Disposition: HOME/ ROUTINE Additional Instructions: final dx-cp, uncontrolled dm2. uncontrolled htn cleared by cardio, 3x negative trops, normal echo no complaints. f/u rmg tuesday, rted prn, med sper med rec, has outpt stress ordered
== END 2017-09-03 16:01 | disposition home or self-care (01) ==
LOC: H.ER 19:51 → H.ERHOLD 23:04
PROVIDERS: ADMIT Family Medicine; ATTEND Family Medicine
DX: R07.89 Other chest pain (principal); E11.65 Type 2 diabetes mellitus with hyperglycemia; E78.00 Pure hypercholesterolemia, unspecified; E78.5 Hyperlipidemia, unspecified; I10 Essential (primary) hypertension; J45.909 Unspecified asthma, uncomplicated; Z79.4 Long term (current) use of insulin; Z79.82 Long term (current) use of aspirin; Z87.891 Personal history of nicotine dependence; Z79.84 Long term (current) use of oral hypoglycemic drugs; Z79.899 Other long term (current) drug therapy
CPT/HCPCS: 71045; 80048; 80053; 82948; 83880; 84484; 85025; 85378; 93005; 93306; 96372; 99285; G0378

== ENCOUNTER 2018-07-02 10:39 | Emergency (ER) | payer MEDICAID ==
[2018-07-02 10:43] VITALS: BP 126/86; PULSE 86; RESP 16; TEMP 98; O2SAT 96; BMI 39.0
--- NOTE | 2018-07-02 11:10 | ED PDOC ---
HPI: Back Time Seen by Provider: 07/02/18 10:50 Chief Complaint (Nursing): Back Pain Chief Complaint (Provider): Back Pain History Per: Patient History/Exam Limitations: no limitations Onset/Duration Of Symptoms: Days Current Symptoms Are (Timing): Still Present Quality Of Discomfort: Aching Severity: Mild Pain Scale Rating Of: 5 Previous Symptoms: Back Pain (left lower back pain rad down left glute and thigh) Associated Symptoms: None Exacerbating Factor(s): Turning, Movement, Sitting Additional History Per: Patient Additional Complaint(s): 62 y/o female c/o left lower back pain rad down left thigh for 3 days, worse with turning and movement. Patient states she noted pain while laying down. Additionally patient states shes been constipated, patient reports she usually takes mag citrate but this week it has not helped. Last bowel movement was yesterday, small. Patient denies fever, nausea, vomiting, abdominal pain, urinary complaints. Patient states she has not taken anything for back pain today. - Risk Factors AAA Risk Factors: Pos: Hypertension Past Medical History Reviewed: Historical Data, Nursing Documentation, Vital Signs Vital Signs: Last Vital Signs Temp 98.0 F 07/02/18 10:42 Pulse 86 07/02/18 10:42 Resp 16 07/02/18 10:42 BP 126/86 07/02/18 10:42 Pulse Ox 96 07/02/18 10:42 - Medical History PMH: Asthma (LAST ATTACK :2013), Diabetes, HTN, Hypercholesterolemia, Sleep Apnea (sleeps w/CPAP) Denies: Chronic Kidney Disease - Surgical History Surgical History: Hernia Repair - Family History Family History: States: Unknown Family Hx - Social History Alcohol: None Drugs: Denies - Home Medications Home Medications: Ambulatory Orders Medication Instructions Recorded Insulin Glargine,Hum.rec.anlog 34 unit SC BID 02/10/15 [Lantus] Aspirin [Ecotrin] 81 mg PO DAILY 05/12/15 Atorvastatin [Lipitor] 80 mg PO DAILY 05/12/15 Losartan/Hydrochlorothiazide 1 tab PO DAILY 05/12/15 [Hyzaar 50-12.5 Tablet] MetFORMIN [glucoPHAGE] 1,000 mg PO BID 05/12/15 Pantoprazole Sodium [Protonix] 40 mg PO DAILY PRN 05/12/15 amLODIPine [Norvasc] 10 mg PO DAILY 05/12/15 Albuterol 0.083% [Albuterol 0.083% 2.5 mg INH RQ4 PRN #0 neb 05/15/15 Inhal Geeta (2.5 mg/3 ml) UD] Moxifloxacin [Avelox] 400 mg PO DAILY #0 tab 05/15/15 Promethazine HCl/Codeine 5 ml PO Q6 PRN #240 syrup 05/15/15 [Prometh-Codein 6.25-10 mg/5 ml] predniSONE [predniSONE Tab] 10 mg PO DAILY #5 tab 05/15/15 Gabapentin [Neurontin] 300 mg PO TID 09/03/17 Insulin Detemir [Levemir] 42 units SC BID #0 vial 09/03/17 Irbesartan 150 mg PO DAILY 09/03/17 Omeprazole 40 mg PO DAILY 09/03/17 hydroCHLOROthiazide [Hydrodiuril] 25 mg PO DAILY 09/03/17 Cyclobenzaprine [Cyclobenzaprine 10 mg PO Q8H PRN #15 tab 07/02/18 HCl] Docusate Sodium [Colace] 100 mg PO DAILY #30 capsule 07/02/18 Naproxen 500 mg PO Q12H PRN #30 tab 07/02/18 Polyethylene Glycol 3350 [Miralax] 17 gm PO DAILY PRN 3 Days 07/02/18 - Allergies Allergies/Adverse Reactions: Allergies Allergy/AdvReac Type Severity Reaction Status Date / Time No Known Allergies Allergy Verified 03/08/14 17:18 Review of Systems ROS Statement: Except As Marked, All Systems Reviewed And Found Negative Constitutional: Negative for: Fever, Chills, Weakness, Malaise Cardiovascular: Negative for: Chest Pain, Palpitations Respiratory: Negative for: Cough, Shortness of Breath, SOB with Exertion, Wheezing Gastrointestinal: Positive for: Constipation. Negative for: Nausea, Vomiting, Abdominal Pain Genitourinary Female: Negative for: Dysuria Musculoskeletal: Positive for: Back Pain Skin: Negative for: Rash Neurological: Negative for: Weakness, Numbness, Confusion, Seizures, Dizziness Physical Exam - Reviewed Nursing Documentation Reviewed: Yes Vital Signs Reviewed: Yes - Physical Exam Appears: Positive for: Well, Non-toxic, No Acute Distress Head Exam: Positive for: ATRAUMATIC, NORMAL INSPECTION, NORMOCEPHALIC Skin: Positive for: Normal Color, Warm, DRY Eye Exam: Positive for: EOMI, Normal appearance, PERRL ENT: Positive for: Normal ENT Inspection Neck: Positive for: Normal, Painless ROM, Supple Cardiovascular/Chest: Positive for: Regular Rate, Rhythm Respiratory: Positive for: CNT, Normal Breath Sounds Pulses-Radial (L): 2+ Pulses-Radial (R): 2+ Gastrointestinal/Abdominal: Positive for: Normal Exam, Bowel Sounds (hyperactive, patient states she didnt eat today), Soft Back: Positive for: Normal Inspection, Muscle Spasm (left lower back tenderness on palpation, slight swelling to muscular aspect of the lower back. ). Negative for: L CVA Tenderness, R CVA Tenderness Extremity: Positive for: Normal ROM, Capillary Refill (<2 sec). Negative for: Tenderness, Pedal Edema, Calf Tenderness, Deformity Neurological/Psych: Positive for: Awake, Alert, Normal Tone, Oriented - ECG O2 Sat by Pulse Oximetry: 96 Medical Decision Making Medical Decision Making: --Accucheck --Toradol 30mg IM --Flexeril 10mg PO --UA --Abd Flat Plate --Mag Citrate x1 in ed 12:20: Patient re-evaluated at this time. Patient state she able to move freely with less discomfort. Patient denies abd pain. xray: pos for stool. clinical findinsg discussed with patient, rx given for colace, miralax, flexeril, naproxen. Patient advised to follow up with PMD. Educated on high fiber diet for persistent constipation. Patient states understanding and agrees with plan. Pt given return to ED precautions. Disposition - Clinical Impression Clinical Impression: Back pain, Constipation - Patient ED Disposition Is Patient to be Admitted: No Counseled Patient/Family Regarding: Diagnosis, Need For Followup, Rx Given - Disposition Referrals: Jorge Villanueva MD [Primary Care Provider] - Disposition: Routine/Home Disposition Time: 12:27 Condition: IMPROVED Additional Instructions: Follow-up with PMD for 1 week. Prescriptions: Cyclobenzaprine [Cyclobenzaprine HCl] 10 mg PO Q8H PRN #15 tab PRN Reason: Muscle Spasm Docusate Sodium [Colace] 100 mg PO DAILY #30 capsule Naproxen 500 mg PO Q12H PRN #30 tab PRN Reason: Pain, Moderate (4-7) Polyethylene Glycol 3350 [Miralax] 17 gm PO DAILY PRN 3 Days PRN Reason: Constipation Instructions: Low Back Pain in Adults, Constipation in Adults Print Language: PU[place] RICAN - POA Present On Arrival: None
[2018-07-02 11:56] LABS: SQUAMOUS EPITHIAL 4 /hpf (0-5); URINE BACTERIA RARE (<OCC); URINE BILIRUBIN NEGATIVE (NEGATIVE); URINE BLOOD NEGATIVE (NEGATIVE); URINE CLARITY SLIGHTY-CLOUDY (Clear); URINE COLOR YELLOW (YELLOW); URINE GLUCOSE (UA) 50 mg/dL (NEGATIVE); URINE LEUKOCYTE ESTERASE NEG Leu/uL (Negative); URINE PROTEIN NEGATIVE (NEGATIVE); URINE URIC ACID CRYSTALS RARE /hpf (<OCC); URINE UROBILINOGEN 0.2-1.0 mg/dL (0.2-1.0)
[2018-07-02] MEDS ORDERED: Magnesium Citrate Oral SOL (300 ml) PO STA (13:01)
[2018-07-02] MEDS ORDERED: Magnesium Citrate Oral SOL (300 ml) ONE (13:17)
--- NOTE | 2018-07-02 18:48 | RAD ---
Date of service: 07/02/2018 HISTORY: constipation COMPARISON: None available. TECHNIQUE: 1 view obtained. FINDINGS: BOWEL: Normal. No obstruction. No free air. Potential underlying constipation as prominent fecal loading is suggested throughout various large-bowel segments. BONES: No gross fracture or destructive bony lesion appreciable. OTHER FINDINGS: None. IMPRESSION: Relatively prominent fecal loading is seen throughout the large bowel and may indicate constipation. Clinically correlate further. No abnormal internal calcifications or gross free intra peritoneal gas collection.
== END 2018-07-02 13:26 | disposition home or self-care (01) ==
LOC: SUPCPDRO 10:39 → H.ER 10:39
DX: M54.5 Low back pain (principal); K59.00 Constipation, unspecified; E11.9 Type 2 diabetes mellitus without complications; I10 Essential (primary) hypertension; J45.909 Unspecified asthma, uncomplicated; Z79.4 Long term (current) use of insulin; Z79.82 Long term (current) use of aspirin; Z79.899 Other long term (current) drug therapy; E78.00 Pure hypercholesterolemia, unspecified
CPT/HCPCS: 74019; 81003; 82948; 96372; 99283; J1885